=== PATIENT | female | born 1955 | race Caucasian/White ===

== ENCOUNTER 2017-01-17 19:30 | Emergency (ER) | payer MEDICARE, MEDICAID ==
[2017-01-17 19:56] VITALS: BP 163/82; PULSE 75; RESP 18; TEMP 97.8; O2SAT 100
[2017-01-17] MEDS ORDERED: Dexamethasone 4 mg/1 ml IM STA (20:15)
[2017-01-17] MEDS ORDERED: Dexamethasone 4 mg/1 ml ONE (20:26)
[2017-01-17 21:05] LABS: RBC URINE 2 /hpf (0-3); URINE BACTERIA RARE (<OCC); URINE BILIRUBIN NEGATIVE (NEGATIVE); URINE BLOOD NEGATIVE (NEGATIVE); URINE COLOR Yellow (YELLOW); URINE GLUCOSE (UA) NORMAL (Normal); URINE KETONE NEGATIVE (NEGATIVE); URINE LEUKOCYTE ESTERASE TRACE Leu/uL (Negative); URINE PROTEIN NEGATIVE (NEGATIVE); URINE UROBILINOGEN NORMAL mg/dL (0.2-1.0); WBC URINE 11 /hpf (0-5)
--- NOTE | 2017-01-17 21:31 | C.PDOC ---
History Of Present Illness 61 year old female presents to the ED with complaints of constant non-radiating right mid-back pain for the past week. Patient states the pain is worse with movement and sitting back and notes she was seen by her PMD and was given Motrin 800 and Tylenol with Codeine with no relief. She reports the area "feels swollen" and denies trauma, numbness, weakness, incontinence, abdominal pain, nausea, vomiting, urinary symptoms, or any other complaints at this time. Time Seen by Provider: 01/17/17 20:03 Chief Complaint (Nursing): Back Pain History Per: Patient History/Exam Limitations: no limitations Onset/Duration Of Symptoms: Days Current Symptoms Are (Timing): Still Present Quality Of Discomfort: "Pain" Severity: Mild Associated Symptoms: None Exacerbating Factor(s): Movement, Sitting Past Medical History Reviewed: Historical Data, Nursing Documentation, Vital Signs Vital Signs: Last Vital Signs Temp 97.8 F 01/17/17 19:53 Pulse 75 01/17/17 19:53 Resp 18 01/17/17 19:53 BP 163/82 H 01/17/17 19:53 Pulse Ox 100 01/17/17 21:39 - Medical History PMH: Arthritis, Diabetes, HTN, Hypercholesterolemia Family History: States: Unknown Family Hx - Social History Hx Tobacco Use: No Hx Alcohol Use: No Hx Substance Use: No - Immunization History Hx Tetanus Toxoid Vaccination: Yes Hx Influenza Vaccination: No Hx Pneumococcal Vaccination: No Review Of Systems Except As Marked, All Systems Reviewed And Found Negative. Constitutional: Negative for: Fever, Chills Gastrointestinal: Negative for: Nausea, Vomiting, Abdominal Pain Genitourinary: Negative for: Dysuria, Frequency, Incontinence Musculoskeletal: Positive for: Back Pain. Negative for: Neck Pain Neurological: Negative for: Weakness, Numbness Physical Exam - Physical Exam Appears: Non-toxic, No Acute Distress Skin: Normal Color, Warm, Dry, No Rash Head: Atraumatic, Normacephalic Eye(s): bilateral: Normal Inspection Oral Mucosa: Moist Neck: Supple Chest: Symmetrical, No Deformity Cardiovascular: Rhythm Regular Respiratory: Normal Breath Sounds, No Accessory Muscle Use, No Rales, No Rhonchi , No Wheezing Gastrointestinal/Abdominal: Soft, No Tenderness, No Distention, No Guarding, No Rebound Back: No Vertebral Tenderness, Paraspinal Tenderness (+Right parathoracic tenderness) Extremity: Normal ROM, No Deformity Neurological/Psych: Oriented x3, Normal Speech, Normal Cognition, Normal Motor Gait: Steady ED Course And Treatment O2 Sat by Pulse Oximetry: 100 (Room air) Pulse Ox Interpretation: Normal - Other Rad Dorsal Spine X-ray X-Ray: Interpreted by Me, Viewed By Me Interpretation: Impression: Negative Medical Decision Making Medical Decision Making: Plan: -Dorsal Spine X-ray -Urinalysis -Decadron -Flexeril -Toradol -Reassess Progress: On reassessment, patient is resting comfortably, with improvement of back pain. Patient remains afebrile, with no bony tenderness, extremity numbness or weakness, or abdominal pain. Patient is ambulatory in the emergency department with no signs of discomfort. Patient was advised to follow up with physician/ clinic in 1-2 days. Disposition - Disposition Referrals: [facility] at [facility] [Outside] Shaquille Brown MD [Staff Provider] - Disposition Time: 21:31 Additional Instructions: Follow up with the medical doctor within 1-2 days without fail. Return if worsened. Prescriptions: Cyclobenzaprine [Flexeril] 5 mg PO TID #21 tab Naproxen [Naprosyn] 500 mg PO BID #20 tab Instructions: Acute Low Back Pain (ED), Back Exercises (ED) - Clinical Impression Clinical Impression: Thoracic back pain - PA / ARCHEOLOGIST / Resident Statement MD/DO has reviewed & agrees with the documentation as recorded. - Scribe Statement The provider has reviewed the documentation as recorded by the Scribe Suad Saleh. All medical record entries made by the Scribe were at my direction and personally dictated by me. I have reviewed the chart and agree that the record accurately reflects my personal performance of the history, physical exam, medical decision making, and the department course for this patient. I have also personally directed, reviewed, and agree with the discharge instructions and disposition.
--- NOTE | 2017-01-17 21:34 | C.PDOC ---
Time Seen by Provider: 01/17/17 20:03 Chief Complaint (Nursing): Back Pain Past Medical History Vital Signs: Last Vital Signs Temp 97.8 F 01/17/17 19:53 Pulse 75 01/17/17 19:53 Resp 18 01/17/17 19:53 BP 163/82 H 01/17/17 19:53 Pulse Ox 100 01/17/17 19:53 - Medical History PMH: Arthritis, Diabetes, HTN, Hypercholesterolemia Family History: States: Unknown Family Hx - Social History Hx Tobacco Use: No Hx Alcohol Use: No Hx Substance Use: No - Immunization History Hx Tetanus Toxoid Vaccination: Yes Hx Influenza Vaccination: No Hx Pneumococcal Vaccination: No ED Course And Treatment O2 Sat by Pulse Oximetry: 100 Disposition - Disposition Referrals: [facility] [Outside] Shaquille Brown MD [Staff Provider] - Disposition: HOME/ ROUTINE Disposition Time: 21:31 Condition: GOOD Additional Instructions: Follow up with the medical doctor within 1-2 days without fail. Return if worsened. Prescriptions: Cyclobenzaprine [Flexeril] 5 mg PO TID #21 tab Naproxen [Naprosyn] 500 mg PO BID #20 tab Instructions: Acute Low Back Pain (ED), Back Exercises (ED) - Clinical Impression Clinical Impression: Thoracic back pain
--- NOTE | 2017-01-18 11:03 | RAD ---
HISTORY: right sided mid back pain COMPARISON: No prior. FINDINGS: BONES: No acute compression fractures no retropulsed fragments. Vertebral bodies exhibit relatively normal stature. Slight increase kyphosis. . There is also a subtle dextroscoliosis centered at the lower thoracic region. DISC SPACES: Mild multilevel degenerative spondylosis. Varying degrees of mild anterior disc space narrowing with small anterolateral osteophyte formation. SOFT TISSUES: Normal. OTHER FINDINGS: None. IMPRESSION: No acute fractures. Mild multilevel degenerative spondylosis as above . Mild increased kyphosis with slight dextroscoliosis centered at the lower thoracic region
== END 2017-01-17 21:45 | disposition home or self-care (01) ==
LOC: C.ER 19:30
DX: M54.6 Pain in thoracic spine (principal)
CPT/HCPCS: 72070; 81001; 87086; 87181; 96372; 99283; J1100; J1885

== ENCOUNTER 2017-05-19 18:44 | Emergency (ER) | payer MEDICARE, MEDICAID ==
[2017-05-19 18:51] VITALS: RESP 18; TEMP 98.1
--- NOTE | 2017-05-19 19:49 | C.PDOC ---
History Of Present Illness 61 y/o female presents to ED with complaints of pain to left ear with ringing and muffled hearing. Pt denies drainage from ear, fever, headache, dizziness or any other complaints. Denies trauma. Time Seen by Provider: 05/19/17 19:21 Chief Complaint (Nursing): ENT Problem History Per: Patient History/Exam Limitations: None Onset/Duration Of Symptoms: Days Current Symptoms Are (Timing): Still Present Quality (Ear): denies: Discharge Symptoms Have Been: Continuous Severity: Moderate Anticoagulant/Antiplatlet Use?: No Past Medical History Reviewed: Historical Data, Nursing Documentation, Vital Signs Vital Signs: Last Vital Signs Temp 98.1 F 05/19/17 18:50 Pulse 79 05/19/17 18:50 Resp 18 05/19/17 18:50 BP 152/83 H 05/19/17 18:50 Pulse Ox 97 05/19/17 19:53 - Medical History PMH: Arthritis, Diabetes, HTN, Hypercholesterolemia Family History: States: Unknown Family Hx - Social History Hx Tobacco Use: No Hx Alcohol Use: No Hx Substance Use: No - Immunization History Hx Tetanus Toxoid Vaccination: Yes Hx Influenza Vaccination: No Hx Pneumococcal Vaccination: No Review Of Systems Constitutional: Negative for: Fever, Chills ENT: Positive for: Ear Pain (left) Neurological: Negative for: Headache, Dizziness Physical Exam - Physical Exam Appears: Non-toxic, No Acute Distress Skin: Warm, Dry, No Rash Head: Atraumatic, Normacephalic Ear(s): Left: Other (Left TM bulging, minimal erythema to canal), Right: Normal Nose: Normal Oral Mucosa: Moist Throat: Normal, No Erythema Neck: Normal, Normal ROM, Supple Lymphatic: No Adenopathy Cardiovascular: Rhythm Regular Respiratory: Normal Breath Sounds, No Rales, No Rhonchi, No Wheezing Neurological/Psych: Oriented x3, Normal Speech ED Course And Treatment O2 Sat by Pulse Oximetry: 97 (room air) Pulse Ox Interpretation: Normal Progress Note: Plan: motrin. Discharged patient home with instructions to follow up with PMD in 3-4 days. Disposition Counseled Patient/Family Regarding: Diagnosis, Need For Followup, Rx Given - Disposition Referrals: Leonardo Arce MD [Staff Provider] - Griselda Herman MD [Non-Staff] - Disposition: HOME/ ROUTINE Disposition Time: 19:48 Condition: STABLE Additional Instructions: Avoid q tips or water in ear Take meds as directed Follow up with PMD or ENT Return to ER if worse Prescriptions: Amoxicillin/Clavulanate [Augmentin 500 MG-125 MG] 1 tab PO TID #21 tab Ibuprofen [Motrin] 600 mg PO Q6H #20 tab Instructions: Otitis Media (ED) - Clinical Impression Clinical Impression: Otitis media - PA / INSPECTOR SALVAGE / Resident Statement MD/DO has reviewed & agrees with the documentation as recorded. - Scribe Statement The provider has reviewed the documentation as recorded by the Meganibashlee Downs All medical record entries made by the Lopez were at my direction and personally dictated by me. I have reviewed the chart and agree that the record accurately reflects my personal performance of the history, physical exam, medical decision making, and the department course for this patient. I have also personally directed, reviewed, and agree with the discharge instructions and disposition.
[2017-05-19 20:07] VITALS: BP 132/70; PULSE 82
[2017-05-20 01:16] VITALS: O2SAT 97
== END 2017-05-19 20:08 | disposition home or self-care (01) ==
LOC: C.ER 18:44
DX: H66.92 Otitis media, unspecified, left ear (principal)

== ENCOUNTER 2017-11-24 19:20 | Emergency (ER) | payer MEDICARE, MEDICAID ==
[2017-11-24 20:20] VITALS: BP 142/79; PULSE 78; RESP 18; TEMP 98.5; O2SAT 98
== END 2017-11-24 21:30 | disposition left against medical advice (07) ==
LOC: C.ER 19:20
DX: Z02.89 Encounter for other administrative examinations (principal); H92.02 Otalgia, left ear

== ENCOUNTER 2019-03-17 20:21 | Emergency (ER) | payer MEDICARE, MEDICAID ==
[2019-03-17 20:21] VITALS: BMI 42.6
[2019-03-17 20:34] VITALS: BP 149/84; PULSE 86; RESP 20; TEMP 98.5; O2SAT 100
--- NOTE | 2019-03-17 20:45 | C.PDOC ---
History Of Present Illness 63 y/o female presents to ED complaining of pain to her right shoulder x1 week. States she is unable to lift her right arm without severe pain in her shoulder. she denies injuring the shoulder recently. Patient takes ibuprofen 600 mg without much relief. Last took it last night. Denies fall, chest pain, or other complaints. Time Seen by Provider: 03/17/19 20:33 Chief Complaint (Nursing): Upper Extremity Problem/Injury History Per: Patient History/Exam Limitations: no limitations Onset/Duration Of Symptoms: Days Current Symptoms Are (Timing): Still Present Past Medical History Reviewed: Historical Data, Nursing Documentation, Vital Signs Vital Signs: Last Vital Signs Temp 98.5 F 03/17/19 20:30 Pulse 86 03/17/19 20:30 Resp 20 03/17/19 20:30 BP 149/84 03/17/19 20:30 Pulse Ox 100 03/17/19 20:30 Primary Care Provider: Griselda Herman - Medical History PMH: Arthritis, Diabetes, HTN, Hypercholesterolemia Denies: Chronic Kidney Disease Surgical History: Denies: Pacemaker Family History: States: No Known Family Hx - Social History Hx Tobacco Use: No Hx Alcohol Use: No Hx Substance Use: No - Immunization History Hx Tetanus Toxoid Vaccination: Yes Hx Influenza Vaccination: No Hx Pneumococcal Vaccination: No Review Of Systems Constitutional: Negative for: Fever, Chills, Weakness Eyes: Negative for: Redness, Other (scleral icterus) ENT: Negative for: Nose Discharge, Throat Pain Cardiovascular: Negative for: Chest Pain Respiratory: Negative for: Cough, Shortness of Breath Gastrointestinal: Negative for: Nausea, Vomiting, Diarrhea Genitourinary: Negative for: Dysuria, Hematuria Musculoskeletal: Positive for: Shoulder Pain (right shoulder). Negative for: Back Pain Skin: Negative for: Rash Neurological: Negative for: Weakness, Numbness, Dizziness Physical Exam - Physical Exam Appears: Non-toxic, No Acute Distress Skin: Warm, Dry Head: Normacephalic Eye(s): bilateral: Normal Inspection Oral Mucosa: Moist Neck: Supple Extremity: Other (increased pain with passive ROM of shoulder) Extremity: Bilateral: Atraumatic, Normal Color And Temperature Pulses: Left Radial: Normal, Right Radial: Normal Neurological/Psych: Oriented x3, Normal Speech, Normal Motor, Normal Sensation, Other (Good distal sensation, good job press operator strength) ED Course And Treatment O2 Sat by Pulse Oximetry: 100 (RA) Pulse Ox Interpretation: Normal Medical Decision Making Medical Decision Making: Plan: --Ibuprofen 600 mg PO --Ultram 50 mg PO --Right shoulder XR xr shows calcification to the soft tissue space most likely calcific tendonitis. she has been given a sling and tramadol. she will be referred to ortho for further eval. Disposition Counseled Patient/Family Regarding: Diagnosis, Need For Followup, Rx Given - Disposition Referrals: Romain Interiano MD [Staff Provider] - Kristina Mas MD [Staff Provider] - Disposition: HOME/ ROUTINE Disposition Time: 20:57 Condition: STABLE Prescriptions: traMADol [Ultram] 50 mg PO BID PRN #10 tab PRN Reason: Pain, Severe (8-10) Instructions: Calcific Tendonitis of the Shoulder (DC) Forms: [email or web address] (Pashto), General Discharge Instructions - Clinical Impression Clinical Impression: Calcific tendinitis of right shoulder - PA / WRAPPER AND PRESERVER / Resident Statement MD/DO has reviewed & agrees with the documentation as recorded. - Scribe Statement The provider has reviewed the documentation as recorded by the Scribe Liz Candelaria All medical record entries made by the Meganibashlee were at my direction and personally dictated by me. I have reviewed the chart and agree that the record accurately reflects my personal performance of the history, physical exam, medical decision making, and the department course for this patient. I have also personally directed, reviewed, and agree with the discharge instructions and disposition.
--- NOTE | 2019-03-18 09:34 | RAD ---
PROCEDURE: Radiographs of the Right Shoulder, three views HISTORY: pain COMPARISON: None available FINDINGS: BONES: No acute displaced fracture. The distal clavicle and underlying ribs appear intact. JOINTS: No acute dislocation. SOFT TISSUES: Large rounded opacity with associated calcifications measuring approximately 2.5 x 2.0 cm adjacent to the humeral head. No evidence of radiopaque foreign body. IMPRESSION: Large rounded opacity with associated calcifications measuring approximately 2.5 x 2.0 cm adjacent to the humeral head. Calcific tendinitis suspected however recommend further evaluation with CT for confirmation. No acute displaced fracture or dislocation evident. If symptoms persist or if there is continued clinical concern, x-ray follow-up in 7-10 days should be considered. Study marked for PA review.
== END 2019-03-17 21:29 | disposition home or self-care (01) ==
LOC: C.ER 20:21
DX: M75.31 Calcific tendinitis of right shoulder (principal)